=== PATIENT | male | born 1950 | race Hispanic/Latino ===

== ENCOUNTER 2017-04-10 10:11 | Inpatient (IN) | payer SELFPAY ==
[2017-04-10 10:55] LABS: #Basophils 0.1 thou/uL (0.0-0.2); #Eosinphils 0.5 thou/uL (0.0-0.7); #Lymphocytes 1.7 thou/uL (1.20-3.40); #Monocytes 0.7 thou/uL (0.11-0.59); #Neutrophils 4.6 thou/uL (1.40-6.50); %Basophils 0.8 % (0.0-1.0); %Eosinophils 6.9 % (0.0-10.0); %Lymphocytes 22.2 % (21.0-51.0); %Monocytes 8.7 % (0.0-10.0); Hematocrit 34.9 % (42.0-52.0); Mean Platelet Volume 8.4 fL (7.4-10.4); Red Blood Cell (RBC) Count 3.79 mill/uL (4.70-6.10); White Blood Cell (WBC) Count 7.5 thou/uL (4.8-10.8)
[2017-04-10 11:01] LABS: PTT 33.4 SEC (22.9-36.1); Prothrombin Time 13.8 SEC (12.0-14.7)
[2017-04-10 11:17] LABS: ALT (SGPT) 19 U/L (8-55); AST (SGOT) 16 U/L (5-34); Alkaline Phosphatase 54 U/L (40-150); Anion Gap 16 mmol/L (10-20); BUN (Urea Nitrogen) 40 mg/dL (8.4-25.7); Bilirubin, Total 0.8 mg/dL (0.2-1.2); Calc. Creatinine Clearance 0 mL/min (70-130); Calcium 9.5 mg/dL (7.8-10.44); Carbon Dioxide 24 mmol/L (23-31); Chloride 104 mmol/L (98-107); Estimated GFR-MDRD 13; Globulin 3.7 g/dL (2.4-3.5)
[2017-04-10 11:22] LABS: Troponin I 0.021 ng/mL (< 0.028)
--- NOTE | 2017-04-10 11:49 | CT ---
NONCONTRAST HEAD CT: Date: 04/10/17 COMPARISON: 05/29/15. HISTORY: Stroke symptoms x2 days. Difficulty swallowing and speaking. TECHNIQUE: Noncontrast head CT is performed from skull base to skull vertex. FINDINGS: No parenchymal hemorrhage. No extra-axial hematoma. No midline shift. Basilar cisterns are patent. A ge-appropriate atrophy. There is loss of walsh-white matter differentiation involving the left tempor al and occipital lobes, which are felt to be due to remote infarct. There appears to be associated m alacic change. There are chronic small vessel ischemic changes of the white matter. Hypodensities in the mid brain and veena are likely due to remote insult. However, given the patient' s symptomatology, additional evaluation with MRI may be beneficial. Remote lacunar infarct in the left thalamus is suspected. Adequate aeration of the sinuses and mastoid air cells. Atherosclerosis of the carotid arteries is n oted. Calvarium is intact. IMPRESSION: Probable remote lacunar infarcts in the left thalamus, mid brain/veena, as well as the left temporal/ occipital lobe. Given the patient's symptomatology, better interrogation with MRI is recommended. POS: JACKSON
[2017-04-10] MEDS ORDERED: Aspirin 325 MG TAB ONE (12:04)
[2017-04-10 15:31] VITALS: BMI 25.9
[2017-04-10] MEDS ORDERED: HYDROcodone/Acetaminophen 5/325 mg Tablet PO PRN (15:35)
[2017-04-10] MEDS ORDERED: HumaLOG 300 UNITS/3 ML VIAL SC PRN (15:35)
[2017-04-10] MEDS ORDERED: Ondansetron HCl/PF 4 MG/2 ML Vial IVP PRN (15:35)
[2017-04-10] MEDS ORDERED: Dextrose 5% in Water 1,000 ML IV PRN (15:35)
[2017-04-10] MEDS ORDERED: Enalaprilat Dihydrate 1.25 MG/ML VIAL SLOW IVP PRN (15:35)
[2017-04-10] MEDS ORDERED: Mag-Al 1200 mg/1200 mg/30 ML UDCUP PO PRN (15:35)
[2017-04-10] MEDS ORDERED: hydrALAZINE 20 MG/ML VIAL SLOW IVP PRN (15:35)
[2017-04-10] MEDS ORDERED: Acetaminophen 325 MG TAB PO PRN (15:35)
[2017-04-10] MEDS ORDERED: Dextrose 50% Abboject 50 ML SYRINGE SLOW IVP PRN (15:35)
[2017-04-10] MEDS ORDERED: Ondansetron ODT 4 MG TAB PO PRN (15:35)
--- NOTE | 2017-04-10 16:53 | HP ---
PRIMARY CARE PHYSICIAN: Merly Pelaez D.O. CHIEF COMPLAINT: Heaviness in the right arm and I could not walk. HISTORY OF PRESENT ILLNESS: Taken from the patient; however, he is somewhat of a poor historian and tends to wander off course with regards to the presence subject, but Mr. Encinas is a pleasant 66-ye ar-old gentleman that has a history of hypertension and diabetes mellitus. He was in his usual stat e of health until about 2-3 weeks ago when he says he was having trouble moving and felt like his fo ot was loose and he was losing his balance. Then, last night he was trying to talk to his and says that his voice was sounding funny, and his right foot and right arm felt heavy and numb, and he says that at times he would get stuck and could not move. He thought he might be having a light he art attack and so this is the reason he came to the ER. The patient denies any chest pain or shortn ess of breath, but he has felt chills off and on. When he was evaluated in the emergency room, he w as found to have a probable remote lacunar infarct in the left thalamus and midbrain and veena as wel l as the left temporal occipital lobe. He is being admitted for a subacute stroke. REVIEW OF SYSTEMS: With regards to the review of systems, CONSTITUTIONAL: The patient denies any fever, but he has had some subjective chills off and on. HEENT: No headaches. He has had some dizziness, which he attributes to visual changes. No sore th roat, rhinorrhea, neck pain, no adenopathy. PULMONARY: No hemoptysis, no cough, no wheezing. CARDIOVASCULAR: He denies chest pain or shortness of breath, no PND, no orthopnea. GASTROINTESTINAL: No abdominal pain, no nausea, no vomiting, no change in bowels. GENITOURINARY: No urinary frequency, hematuria, no hesitancy. NEUROLOGIC: No focal weakness, numbness, no seizures. PSYCHIATRIC: No symptoms of anxiety or depression. SKIN AND INTEGUMENT: No skin changes or rash. NEUROLOGIC: As per the history of present illness, not as what I previously mentioned. PAST MEDICAL HISTORY: Diabetes mellitus, hypertension, systolic heart failure with an ejection frac tion of 35-40% as well as chronic kidney disease. PAST SURGICAL HISTORY: History of scrotal surgery. FAMILY HISTORY: Significant for mother who had diabetes mellitus. ALLERGIES: No known drug allergies. SOCIAL HISTORY: He smokes about 1-2 cigarettes a day as well as he occasionally drinks approximatel y once a week. He is . CODE STATUS: FULL CODE. MEDICATIONS: Furosemide 20 mg daily, hydralazine 10 mg twice a daily, lisinopril 5 mg daily, simvas tatin 20 mg daily, and amlodipine 10 mg daily and this is from the patient's medication bottles at [facility]. PHYSICAL EXAMINATION: GENERAL: He is alert and oriented. He appears to be in no acute distress. VITAL SIGNS: Blood pressure was 178/88, heart rate is 88, respiratory rate of 19, and temperature i s 97.9. HEENT: His pupils are equal, round, and reactive. Extraocular muscles are intact. His sclerae are anicteric, and on the left pupil, the lens is slightly opacified. Throat: There is no erythema, n o exudates. NECK: I do not appreciate any bruits. LUNGS: Clear. No wheezing, no rales. CARDIOVASCULAR: Heart sounds are slightly distant, but he has a normal S1 and S2. I did not apprec iate an S3 or S4. No murmurs, clicks or rubs. ABDOMEN: Soft, nontender, and nondistended. There is no rebound or guarding. He did seem to have an abdominal wall hernia on the right extreme lateral upper quadrant. EXTREMITIES: There is no edema. He does have some chronic venous stasis changes. NEUROLOGICALLY: He did have a slight difference in his right and left upper extremity with the righ t side being slightly less strength than the left, but the strength was 5/5, the same is true for th e right and left lower extremities with the right lower extremity being slightly less than the left. His reflexes were symmetric; however, and 2+ throughout. He was able to dorsiflex both feet and plantar fell flat. He had some facial asymmetry with a right facial droop. SIGNIFICANT LABORATORY AND X-RAY FINDINGS: White blood cell count 7.5, hemoglobin 11.9, hematocrit is 34.9, and platelet count is 172. INR is 1.1. Sodium 140, potassium 4.0, chloride is 104, CO2 is 25, BUN of 40, creatinine 4.4. His blood s ugar was 148, troponin was 0.021, and he had a CT scan with the previously mentioned, probable lacun ar infarct in the left thalamus and mid brain as well as the veena and left temporal occipital lobe. ASSESSMENT AND PLAN: The patient will be admitted to the stroke floor for a subacute infarct. We w ill initiate a stroke workup including echocardiogram as well as bilateral carotid Dopplers and hugh tor him for atrial fibrillation on telemetry. We will also consult Neurology, start him on aspirin therapy as well. The patient has fairly significant chronic kidney disease. It looks as if his cre atinine is about at his baseline. We will likely need to consult Nephrology to help follow along wi th him here in the hospital. 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 Hopefully, once we find t his out, then we will have his Nephrology group to see him, he will also be seen by Neurology and mag galindo recommendations will be forthcoming.
--- NOTE | 2017-04-10 19:13 | CON ---
DATE OF CONSULTATION: 04/10/2017 REFERRING PHYSICIAN: Carlos Manuel Nelson M.D. REASON FOR CONSULTATION: Right-sided weakness. HISTORY OF PRESENT ILLNESS: Mr. Encinas is a pleasant 66-year-old male, who has been consulted for evaluation of right-sided weakness. The patient reports that approximately a month ago, he started noticing weakness in his right arm and right leg. He was having difficulty with walking and balance. He did not seek any medical attention as he thought that this will improve by him walking it off. He also started noticing weakness in his right side of the face as well as difficulty with talking and slurring of speech. He has noted difficulty with getting his words out at times. He denied any vision changes, headaches, lightheadedness, dizziness, numbness, or tingling. PAST MEDICAL HISTORY: Significant for diabetes, hypertension, systolic heart failure, and chronic kidney disease. PAST SURGICAL HISTORY: Significant for scrotal surgery. FAMILY HISTORY: Significant for diabetes. SOCIAL HISTORY: Smokes about 1-2 cigarettes on a daily basis. He drinks alcohol on occasions. He denies illicit drug use. He is . CURRENT MEDICATIONS: Please review MAR. ALLERGIES: No known drug allergies. REVIEW OF SYSTEMS: As mentioned in the HPI, otherwise negative. PHYSICAL EXAMINATION: VITAL SIGNS: Blood pressure 189/65, pulse of 76, temperature of 97.8, respirations of 16, O2 sats of 98% on room air. GENERAL: Well-developed, well-nourished male, in no apparent distress. RESPIRATORY: Clear to auscultation bilaterally. CARDIOVASCULAR: Regular rate and rhythm. NEUROLOGIC: Mental status: The patient is awake, alert, oriented x3. Speech and language: Mildly dysarthric speech noted. Cranial nerves: Pupils are 3 mm and reactive. Visual estrada are full intact. External muscles are intact. There is a right facial droop noted. Tongue and uvula are midline. Motor exam showed normal tone and bulk with 4/5 strength in the right upper extremity and 5 /5 strength in the right lower extremity as well as left upper and left lower extremity. He has a pronator drift on the right upper extremity. Sensory: Sensation is intact and symmetric. Deep tendon reflexes 2+ reflexes in both upper and lower extremities. Babinski plantar responses extensor on the right and flexion on the left. He does have a positive Ava's on the right. Coordination intact to [id number] ftapping bilaterally. LABORATORY DATA: Reviewed, which included CBC, coag panel, CMP, which is significant for hemoglobin 11.9, hematocrit of 34.9, BUN of 40, creatinine of 4.44, glucose of 152, otherwise unremarkable. IMAGING STUDIES: CT head without contrast was reviewed, which showed hypodensity involving the left thalamus midbrain veena as well as left temporal occipital region. IMPRESSION: 1. Subacute to chronic infarct involving the left temporal occipital region. 2. Hypertension. 3. Diabetes. 4. Right hemiparesis, due to #1. ASSESSMENT AND PLAN: Mr. Encinas is a pleasant 66-year-old male, who presented with 1-month history of weakness in his right side. His CAT scan does show subacute to chronic infarct involving the left temporal occipital region. This is the likely cause for his ongoing symptoms. At this time, I would recommend obtaining MRI brain without contrast as well as carotid Dopplers and echocardiogram. I would also recommend obtaining lipid profile. I agree with starting him on aspirin 325 mg daily for secondary stroke prevention as well as Lipitor 80 mg at bedtime for hyperlipidemia and secondary stroke prevention. I would recommend consulting PT, OT, and speech therapy. Continue supportive care. Continue current medical management. Thank you for consultation. MORENITA
[2017-04-10] MEDS: hydrALAZINE 10 MG TAB PO SCH (21:24)
[2017-04-10] MEDS: Atorvastatin Calcium 40 MG TAB PO SCH (21:25)
[2017-04-10] MEDS: Heparin 5,000 UNITS/ML VIAL SC SCH (21:25)
--- NOTE | 2017-04-10 21:49 | ULT ---
CAROTID ULTRASOUND: History: CVA. Comparison: None. Technique: Grayscale, color flow, doppler imaging with spectral analysis performed of the carotid ve rtebral arteries. FINDINGS: Right side: No significant atherosclerotic disease. Peak systolic velocity of the common carotid art ansley is 85.7 cm/sec. Peak systolic velocity internal carotid artery is 70.1 cm/sec. Systolic ICA/CCA ratio is 0.8. Left side: Minimal atherosclerotic disease. There are no elevated peak systolic or end diastolic ursula ocities to suggest hemodynamically significant stenosis. Peak systolic velocity of the common caroti d artery is 90.8 cm/sec. Peak systolic velocity of internal carotid artery is 94.3 cm/sec. Systolic ICA/CCA ratio is 1.04. Antegrade flow in bilateral vertebral arteries. IMPRESSION: No sonographic evidence of hemodynamically significant stenosis. POS: PPP
--- NOTE | 2017-04-11 05:37 | CON ---
DATE OF CONSULTATION: 04/10/2017 REASON FOR CONSULTATION: Stage V chronic kidney disease. HISTORY OF PRESENT ILLNESS: This is a 66-year-old gentleman with a history of diabetes mellitus and hypertension presented to the hospital with a creatinine of 4.4. Prior baseline was anywhere from 3.7-4.3. The patient was admitted today for a heaviness in the right arm and unable to walk, so for possible CVA. The patient at this time has no headache, numbness, tingling or weakness. Denies an y nausea, vomiting or chest pain. PAST MEDICAL HISTORY: Significant for diabetes mellitus, hypertension, congestive heart failure, CK D, scrotal surgery. FAMILY HISTORY: Negative for ESRD. ALLERGIES: Reviewed. SOCIAL HISTORY: Patient smokes. HOME MEDICATIONS: Reviewed. HOSPITAL MEDICATIONS: Reviewed. REVIEW OF SYSTEMS: Fifteen-point review of systems was performed and negative except positives note d above. GENERAL: Weakness- HEAD: Headache- NECK: No swelling or lumps. NOSE: No epistaxis or discharge. EYES: No diplopia or pain. RESPIRATORY: Dyspnea- CARDIOVASCULAR: Chest pain- GASTROINTESTINAL: Nausea- /ADULT NURSE PRACTITIONER: Hematuria- MUSCULOSKELETAL: No joint pain. NEUROPSYCHIATIC SYSTEMS: No suicidal ideation. No ideation. SKIN: Denies any rash or ulcer. CONSTITUTIONAL: No fever or chills. PHYSICAL EXAMINATION: GENERAL: Patient is awake, alert. VITAL SIGNS: Afebrile, pulse 75, breathing at 16, blood pressure 189/65. GENERAL APPEARANCE AND MENTAL STATUS: Fair. HEAD/NECK: Normocephalic. Atraumatic. EYES: EOMI. No deformity. EARS: Clear. No ulcers. NOSE: Intact. No lesions. MOUTH: Clear. No discharge. THROAT: Clear. No exudate. LUNGS: Clear. No crackles. CARDIAC: S1, S2. No rub. ABDOMEN: Benign. BS+. GENITALIA/RECTUM: Prasad absent. BACK/EXTREMITIES: Edema 0+ Ulcer- NEUROLOGICAL: Alert and motor intact. SKIN: Rash- Bruise- LYMPHATICS: Edema- Ulcer- LABORATORY: Show creatinine 4.4. ASSESSMENT AND RECOMMENDATIONS: 1. Stage V chronic kidney disease, would recommend holding lisinopril and increasing hydralazine. 2. Hypertension. Titrate medication. 3. Anemia, stable. 4. Medications based on glomerular filtration rate are appropriate. No indication for dialysis at this time. The patient will follow up with Dr. Lamb in the morning. The patient is seen by Dr. Lamb as an outpatient.
[2017-04-11 05:46] LABS: #Basophils 0.1 thou/uL (0.0-0.2); #Eosinphils 0.6 thou/uL (0.0-0.7); #Lymphocytes 2.7 thou/uL (1.20-3.40); #Monocytes 0.7 thou/uL (0.11-0.59); #Neutrophils 4.5 thou/uL (1.40-6.50); %Basophils 1.1 % (0.0-1.0); %Eosinophils 6.5 % (0.0-10.0); %Lymphocytes 31.8 % (21.0-51.0); %Monocytes 8.4 % (0.0-10.0); Hematocrit 35.5 % (42.0-52.0); Mean Platelet Volume 8.5 fL (7.4-10.4); Red Blood Cell (RBC) Count 3.89 mill/uL (4.70-6.10); White Blood Cell (WBC) Count 8.5 thou/uL (4.8-10.8)
[2017-04-11 06:07] LABS: Anion Gap 15 mmol/L (10-20); BUN (Urea Nitrogen) 42 mg/dL (8.4-25.7); Calc. Creatinine Clearance 18 mL/min (70-130); Calcium 9.3 mg/dL (7.8-10.44); Carbon Dioxide 22 mmol/L (23-31); Chloride 106 mmol/L (98-107); Cholesterol 148 mg/dl (< 200 Desired); Estimated GFR-MDRD 14; LDL Cholesterol, Calculated 73 mg/dL
[2017-04-11] MEDS: Aspirin 325 mg Enteric Coated Tablet PO SCH (08:13)
[2017-04-11] MEDS: hydrALAZINE 10 MG TAB PO SCH (08:13)
[2017-04-11] MEDS: Amlodipine 10 MG TAB PO SCH (08:16)
[2017-04-11] MEDS: Heparin 5,000 UNITS/ML VIAL SC SCH ×3 (08:22→20:13)
[2017-04-11] MEDS ORDERED: Lisinopril 5 MG TAB PO SCH (09:00)
[2017-04-11] MEDS ORDERED: hydrALAZINE 10 MG TAB PO SCH (09:13)
[2017-04-11] MEDS ORDERED: hydrALAZINE 25 MG TAB PO SCH (09:30)
--- NOTE | 2017-04-11 10:06 | MRI ---
MRI BRAIN WITHOUT IV CONTRAST: 04/11/2017 HISTORY: Difficulty swallowing and speaking. COMPARISON: CT head from 04/10/2017. FINDINGS: There is increased FLAIR and T2 weighted signal intensity in the veena bilaterally, like attributable to chronic small vessel ischemic changes. However, there is a linear area of restricted diffusion seen within the left aspect of the veena, consistent with an acute infarction. No additional acute i nfarction is seen. There are areas of increased FLAIR and T2 weighted signal intensity seen within the periventricular and subcortical white matter, likely attributable to moderate chronic small vessel ischemic changes. There is increased FLAIR and T2 weighted signal intensity with associated gliosis involving the le ft temporal and occipital lobe, likely related to a remote area of infarction. There are foci of increased FLAIR and T2 weighted signal intensity in the thalami bilaterally, most compatible with remote lacunar infarctions. The septum pellucidum and third ventricle are in the midline. There is cerebral and cerebellar volu me loss. The ventricular system is normal in size, shape, and position for the degree of sulcal atr ophy. the distal right vertebral artery is not visualized and may potentially terminate in PICA. There ar e otherwise appropriate flow voids demonstrated at the base of the brain. The orbits, paranasal sinuses, and skull base have a normal MRI appearance. IMPRESSION: 1. Acute lacunar infarction, left veena. 2. Chronic small vessel ischemic changes, including chronic small vessel ischemic changes in the po ns. 3. Remote bilateral lacunar infarctions in each thalamus. 4. Remote infarction in the posterior aspect of the left temporal lobe and involving the occipital lobe. 5. Cerebral and cerebellar volume loss. 6. Subcentimeter focus of increased T2 weighted signal intensity within the left parotid gland, pro bably related to an intraparotid lymph node. 7. Nonvisualization of the distal right vertebral artery flow void, and the right vertebral artery may potentially terminate in PICA. This is a normal variant. POS: SALO
[2017-04-11] MEDS ORDERED: cloNIDine 0.1 MG TAB PO PRN (12:23)
[2017-04-11] MEDS ORDERED: hydrALAZINE 20 MG/ML VIAL SLOW IVP PRN (12:23)
--- NOTE | 2017-04-11 12:27 | PDOC.PN ---
- Subjective Encounter Start Date: 04/11/17 Encounter Start Time: 12:26 Patient seen and examined. No new complaints. No overnight events. Still has Rt sided weakness/paresthesias. - Objective Resuscitation Status: Resuscitation Status FULL:Full Resuscitation MAR Reviewed: Yes Vital Signs & Weight: Vital Signs (12 hours) Temp Pulse Pulse Pulse Resp BP BP 04/11/17 11:43 97.5 F L 81 16 04/11/17 10:47 76 167/74 H 04/11/17 08:44 75 85 137/69 04/11/17 08:16 76 167/74 H 04/11/17 08:13 76 167/74 H 04/11/17 08:00 98.9 F 76 16 04/11/17 07:50 77 77 156/77 H 04/11/17 07:33 98.9 F 76 16 04/11/17 05:25 97.8 F 88 18 BP BP Pulse Ox 04/11/17 11:43 141/65 H 98 04/11/17 10:47 04/11/17 08:44 159/72 H 04/11/17 08:16 04/11/17 08:13 04/11/17 08:00 04/11/17 07:50 167/74 H 04/11/17 07:33 170/76 H 97 04/11/17 05:25 169/79 H 98 I&O: 04/10/17 04/11/17 04/12/17 06:59 06:59 06:59 Intake Total 920 240 Balance 920 240 Result Diagrams: 04/11/17 05:16 04/11/17 05:16 Additional Labs: Accuchecks 04/11/17 04/11/17 04/10/17 10:57 05:29 21:10 POC Glucose 150 H 128 H 154 H 04/10/17 16:47 POC Glucose 152 H Radiology Reviewed by me: Yes (MRI brain - Acute CVA) EKG Reviewed by me: Yes (Tele SR) Phys Exam - Physical Examination Constitutional: NAD Neck: no nodes, no JVD Respiratory: no wheezing, no rales, no rhonchi Symmetrical Cardiovascular: RRR, no rub 2/6 systolic murmur at M area, no heaves/pulsations Gastrointestinal: soft, non-tender, no distention, positive bowel sounds Musculoskeletal: no edema, pulses present Neurological: moves all 4 limbs Rt UE/LE - 4-5/5 strength Dx/Plan (1) Acute CVA (cerebrovascular accident) Code(s): I63.9 - CEREBRAL INFARCTION, UNSPECIFIED Status: Acute (2) Tobacco dependence Code(s): F17.200 - NICOTINE DEPENDENCE, UNSPECIFIED, UNCOMPLICATED Status: Chronic (3) Chronic systolic heart failure Code(s): I50.22 - CHRONIC SYSTOLIC (CONGESTIVE) HEART FAILURE Status: Chronic Comment: No ACEI/ARB/Aldactone due to CKD (4) Hypertension Code(s): I10 - ESSENTIAL (PRIMARY) HYPERTENSION Status: Chronic (5) CKD (chronic kidney disease) stage 4, GFR 15-29 ml/min Code(s): N18.4 - CHRONIC KIDNEY DISEASE, STAGE 4 (SEVERE) Status: Chronic (6) Anemia of renal disease Code(s): D63.1 - ANEMIA IN CHRONIC KIDNEY DISEASE Status: Chronic (7) DM2 (diabetes mellitus, type 2) Status: Chronic - Plan cont current plan of care, DVT proph w/heparin, DVT proph w/SCDs * On ASA - Patient has discontinued taking ASA 2-3 months ago * Counselled to quit smoking * Cont Statins * Hydralazine dose increased earlier today per Nephrology * DC ACEI - I confirmed with Nephrology * Add PRN BP meds Review of Systems - Review of Systems Respiratory: negative: Cough, Dry, Shortness of Breath, Hemoptysis, SOB with Excertion, Pleuritic Pain, Sputum, Wheezing Cardiovascular: negative: Chest Pain, Palpitations, Orthopnea, Paroxysmal Noc. Dyspnea, Edema, Light Headedness, Other Gastrointestinal: negative: Nausea, Vomiting, Abdominal Pain, Diarrhea, Constipation, Melena, Hematochezia, Other - Medications/Allergies Allergies/Adverse Reactions: Allergies Allergy/AdvReac Type Severity Reaction Status Date / Time No Known Allergies Allergy Verified 09/09/15 23:09 Medications: Current Medications Acetaminophen (Tylenol) 650 mg PO Q4H PRN PRN Reason: Headache/Fever or Pain Hydrocodone Bitart/Acetaminophen (Christine 5/325) 1 tab PO Q4H PRN PRN Reason: Moderate Pain (4-6) Al Hydroxide/Mg Hydroxide (Maalox) 30 ml PO Q6H PRN PRN Reason: Heartburn or Indigestion Amlodipine Besylate (Norvasc) 10 mg PO DAILY [facility] Last Admin: 04/11/17 08:16 Dose: 10 mg Aspirin (Ecotrin) 325 mg PO DAILY [facility] Last Admin: 04/11/17 08:13 Dose: 325 mg Atorvastatin Calcium (Lipitor) 80 mg PO HS [facility] Last Admin: 04/10/17 21:25 Dose: 80 mg Clonidine (Catapres) 0.1 mg PO Q4H PRN PRN Reason: Systolic BP > 180 Dextrose/Water (Dextrose 50%) 25 gm SLOW IVP PRN PRN PRN Reason: Hypoglycemia Glucagon (Glucagon) 1 mg IM PRN PRN PRN Reason: Hypoglycemia Heparin Sodium (Porcine) (Heparin) 5,000 units SC TID [facility] Last Admin: 04/11/17 08:22 Dose: Not Given Hydralazine HCl (Apresoline) 25 mg PO BID [facility] Hydralazine HCl (Apresoline) 10 mg SLOW IVP Q4H PRN PRN Reason: SBP Greater Than 180 Dextrose/Water (D5w) 1,000 mls @ 0 mls/hr IV .Q0M PRN; As Directed PRN Reason: Hypoglycemia Insulin Human Lispro (Humalog) 0 units SC .MODERATE SLIDING SC PRN PRN Reason: Moderate Correctional Scale Ondansetron HCl (Zofran Odt) 4 mg PO Q6H PRN PRN Reason: Nausea/Vomiting Ondansetron HCl (Zofran) 4 mg IVP Q6H PRN PRN Reason: Nausea/Vomiting Sodium Chloride (Flush - Normal Saline) 10 ml IVF Q12HR [facility] Sodium Chloride (Flush - Normal Saline) 10 ml IVF PRN PRN PRN Reason: Saline Flush
[2017-04-11] MEDS: hydrALAZINE 25 MG TAB PO SCH (20:11)
[2017-04-11] MEDS: Atorvastatin Calcium 40 MG TAB PO SCH (20:12)
--- NOTE | 2017-04-12 01:18 | PRG ---
DATE OF SERVICE: 04/11/2017 SUBJECTIVE: Patient was seen and examined at bedside and overnight events noted. Patient denies an y shortness of breath or chest pain or palpitation. No history of nausea or vomiting or diarrhea or fever or chills or cramps. OBJECTIVE: GENERAL: This is a well built male in no apparent distress VITAL SIGNS: Temperature 98.5, pulse 92, respirations , blood pressure 147/72. HEENT: Atraumatic, normocephalic. Oral mucosa is moist. NECK: Supple. CARDIOVASCULAR: S1, S2 heard. Rate and rhythm regular. RESPIRATORY: Clear to auscultation. GASTROINTESTINAL: Abdomen is soft. MUSCULOSKELETAL: No tenderness. No edema. DERMATOLOGIC: No skin rash. NEUROLOGIC: Alert and awake and oriented X3, no focal neurologic deficits. Moving all the extremit ies. PSYCHIATRIC: Mood and affect normal. LABORATORY DATA: Potassium is 3.9, BUN is 42, creatinine is 4.2. ASSESSMENT AND PLAN: 1. Acute kidney injury on chronic kidney disease stage 5. Renal function is stable, close to his b aseline. Agree with holding lisinopril. 2. Hypertension. We will up titrate hydralazine as tolerated . 3. Anemia, mild. 4. Renal function seems to be stable and close to his baseline. Plan is to hold JOSÉ MIGUEL inhibitors at this point given the advanced GFR and we will follow blood pressur e closely. Blood pressure seems to be getting controlled now.
[2017-04-12] MEDS: Amlodipine 10 MG TAB PO SCH (07:59)
[2017-04-12] MEDS: Aspirin 325 mg Enteric Coated Tablet PO SCH (07:59)
[2017-04-12] MEDS: hydrALAZINE 25 MG TAB PO SCH ×2 (07:59→21:37)
[2017-04-12] MEDS: Heparin 5,000 UNITS/ML VIAL SC SCH ×3 (08:05→21:38)
--- NOTE | 2017-04-12 09:19 | PDOC.PN ---
- Subjective Encounter Start Date: 04/12/17 Encounter Start Time: 09:17 Mr. Encinas is disappointed about the weakness in his lright arm and leg. He had expected it to improve by now. - Objective Resuscitation Status: Resuscitation Status FULL:Full Resuscitation MAR Reviewed: Yes Vital Signs & Weight: Vital Signs (12 hours) Temp Pulse Resp BP Pulse Ox 04/12/17 07:59 79 04/12/17 07:25 98.0 F 79 18 117/70 98 04/12/17 03:35 97.7 F 73 12 109/53 L 98 04/11/17 23:56 97.7 F 74 18 121/62 94 L Weight Admit Weight 156 lb Weight 155 lb 6.4 oz I&O: 04/11/17 04/12/17 04/13/17 06:59 06:59 06:59 Intake Total 920 1360 Balance 920 1360 Result Diagrams: 04/11/17 05:16 04/11/17 05:16 Additional Labs: Accuchecks 04/12/17 04/11/17 04/11/17 06:19 17:22 10:57 POC Glucose 152 H 130 H 150 H Phys Exam - Physical Examination HEENT: PERRLA Respiratory: no wheezing, no rales, no rhonchi, clear to auscultation bilateral Cardiovascular: RRR, no significant murmur Gastrointestinal: soft, non-tender, positive bowel sounds Musculoskeletal: no edema + right upper and lower extremity weakness Dx/Plan (1) CKD stage 5 secondary to hypertension Code(s): I12.0 - HYP CHR KIDNEY DISEASE W STAGE 5 CHR KIDNEY DISEASE OR ESRD; N18.5 - CHRONIC KIDNEY DISEASE, STAGE 5 Status: Acute (2) Acute CVA (cerebrovascular accident) Code(s): I63.9 - CEREBRAL INFARCTION, UNSPECIFIED Status: Acute (3) DM2 (diabetes mellitus, type 2) Status: Chronic (4) Hypertension Code(s): I10 - ESSENTIAL (PRIMARY) HYPERTENSION Status: Chronic (5) Tobacco dependence Code(s): F17.200 - NICOTINE DEPENDENCE, UNSPECIFIED, UNCOMPLICATED Status: Chronic - Plan * Acute Left pontine CVA- continue aspirin therapy * Will continue Lipitor while in the hospital, and can change to Simvastatin at a higher dose at discharge ( patient is uninsured) * HTN- blood pressure has improved. He is now off Lisinopril due to advanced kidney disease * Hydralazine has been increased, and will continue Amlodipine * Discussed stopping ALL tobacco products including chewing tobacco * Continue PT/OT * Plan is for discharge tomorrow ( daughter is unable to pick him up today).
--- NOTE | 2017-04-12 11:33 | PRG ---
DATE OF SERVICE: 04/12/2017 SUBJECTIVE: Patient was seen and examined at bedside and overnight events noted. Patient denies an y shortness of breath or chest pain or palpitation. No history of nausea or vomiting or diarrhea or fever or chills or cramps. OBJECTIVE: GENERAL: This is a well-built male in no apparent distress. VITAL SIGNS: Temperature 98.0, pulse 79, respiratory rate 18, blood pressure 117/70. HEENT: Atraumatic, normocephalic. Oral mucosa is moist. NECK: Supple. CARDIOVASCULAR: S1 and S2 heard, rate and rhythm regular. RESPIRATORY: Clear to auscultation. GASTROINTESTINAL: Abdomen is soft. MUSCULOSKELETAL: No tenderness, no edema. DERMATOLOGIC: No skin rash. NEUROLOGIC: Alert and awake and oriented X3. No focal neurologic deficits. Moving all the extremi ties. PSYCHIATRIC: Mood and affect normal. LABORATORY DATA: Not done. ASSESSMENT AND PLAN: 1. Acute kidney injury on chronic kidney disease stage 5. Renal function is stable. No acute ind ication for dialysis. We will continue close monitor. 2. Hypertension, better. Continue to avoid JOSÉ MIGUEL inhibitors. 3. Anemia mild. 4. Edema, controlled . 5. Overall, blood pressure is stable. Renal function is stable. No acute indication for dialysis. We will continue close monitoring.
[2017-04-12] MEDS: Atorvastatin Calcium 40 MG TAB PO SCH (21:44)
--- NOTE | 2017-04-13 08:46 | PDOC.PN ---
- Subjective Encounter Start Date: 04/13/17 Encounter Start Time: 08:45 Subjective: Ambulating with rolling walker in hallway with PT. To go home with -: step daughter and girlfriend. Waiting on age 67 for Medicare. - Objective Resuscitation Status: Resuscitation Status FULL:Full Resuscitation MAR Reviewed: Yes Vital Signs & Weight: Vital Signs (12 hours) Temp Pulse Resp BP BP Pulse Ox 04/13/17 07:55 97.9 F 71 18 04/13/17 07:15 97.9 F 71 18 134/65 97 04/13/17 04:30 98.2 F 93 16 120/74 98 04/13/17 00:00 98.3 F 76 16 123/66 98 04/12/17 21:37 72 147/71 H Weight Admit Weight 156 lb Weight 155 lb 6.4 oz I&O: 04/12/17 04/13/17 04/14/17 06:59 06:59 06:59 Intake Total 1360 360 Balance 1360 360 Result Diagrams: 04/11/17 05:16 04/11/17 05:16 Additional Labs: Accuchecks 04/13/17 04/12/17 04/12/17 06:31 21:35 17:16 POC Glucose 124 H 132 H 156 H 04/12/17 10:47 POC Glucose 132 H Phys Exam - Physical Examination Constitutional: NAD HEENT: moist MMs Respiratory: no rales, no rhonchi occ wheezes Cardiovascular: RRR, no significant murmur Gastrointestinal: soft, non-tender Musculoskeletal: no edema, pulses present decreased strength in RU and LE, right facial droop Psychiatric: normal affect, A&O x 3 Dx/Plan (1) Acute CVA (cerebrovascular accident) Code(s): I63.9 - CEREBRAL INFARCTION, UNSPECIFIED Status: Acute (2) CKD stage 5 secondary to hypertension Code(s): I12.0 - HYP CHR KIDNEY DISEASE W STAGE 5 CHR KIDNEY DISEASE OR ESRD; N18.5 - CHRONIC KIDNEY DISEASE, STAGE 5 Status: Acute (3) DM2 (diabetes mellitus, type 2) Status: Chronic (4) Hypertension Code(s): I10 - ESSENTIAL (PRIMARY) HYPERTENSION Status: Chronic (5) Tobacco dependence Code(s): F17.200 - NICOTINE DEPENDENCE, UNSPECIFIED, UNCOMPLICATED Status: Chronic Comment: Patient to stop all smoking and smokeless tobacco. - Plan cont current plan of care, PT/OT D/c home today with family. * . - Discharge Day Encounter end time: 10:00
[2017-04-13] MEDS: hydrALAZINE 25 MG TAB PO SCH (09:39)
[2017-04-13] MEDS: Aspirin 325 mg Enteric Coated Tablet PO SCH (09:39)
[2017-04-13] MEDS: Amlodipine 10 MG TAB PO SCH (09:39)
[2017-04-13] MEDS: Heparin 5,000 UNITS/ML VIAL SC SCH (09:40)
[2017-04-13 11:34] VITALS: TEMP 98.5
[2017-04-13 11:54] VITALS: BP 143/72
--- NOTE | 2017-04-13 13:24 | DIS ---
PRIMARY CARE PHYSICIAN: Merly Pelaez D.O. ADMISSION DIAGNOSES: 1. Subacute stroke. 2. Diabetes mellitus type 2, diet controlled. 3. Hypertension. 4. Chronic systolic congestive heart failure. 5. Chronic kidney disease. DISCHARGE DIAGNOSES: 1. Acute/subacute cerebrovascular accident. 2. Chronic kidney disease, stage 5, secondary to hypertension. 3. Hypertension. 4. Diabetes mellitus, type 2, diet controlled. 5. Tobacco dependence. 6. Systolic congestive heart failure, stable. CONSULTATIONS: 1. Nephrology, Dr. Lion. 2. Neurology, Dr. Aviva Chaudhry. PROCEDURES: 1. CT of the brain showing probable remote lacunar infarction of left thalamus, mid brain stem and veena as well as the left temporal-occipital lobe. 2. Carotid Doppler study showing no evidence for significant stenosis. 3. MRI showing an acute lacunar infarct in the left veena along with multiple remote infarcts. 4. Transthoracic echocardiogram showing an ejection fraction of 60%-65% and some suggestion of parr tolic dysfunction. PERTINENT LABORATORY DATA: Hemoglobin stable at 11.8. Coagulation profile normal. Blood sugars wi thin normal range throughout hospitalization, creatinine 4.44 at admission, down to 4.22 at discharg e. Cholesterol profile only notable for a triglyceride of 174. The remainder is within normal limi ts. SUMMARY OF HOSPITAL COURSE: This is a 66-year-old male, who came in with a past medical hi story for diabetes, hypertension, systolic congestive heart failure, though he does not appear to perez ve any systolic dysfunction at this point and his diabetes is controlled without medications. He ca me in with right-sided weakness, some has started about a month ago, and he had some increased sever ity symptoms right before he came in along with slurring of his speech. He was evaluated in the [facility]. CT and MRI results as above. The patient had physical therapy and speech therapy evaluation s. He was doing well the day of discharge and ambulating with a walker in the hallway and eating we ll. He will be discharged home to the care of his family, his stepdaughter, and his girlfriend, who lives with him, who will help care for him. DISCHARGE MANAGEMENT: Discharged home. Follow up with Dr. Pelaez next week. ACTIVITIES: As tolerated. Ambulate with a rolling walker with assistance only at first until he ge ts more steady on his feet. DIET: Healthy heart, diabetic diet with low sodium and low potassium. DISCHARGE MEDICATIONS: 1. Amlodipine 10 mg daily. 2. Hydralazine 25 mg twice a day, 60 tablets dispensed. 3. Atorvastatin 80 mg daily, 30 tablets dispensed. 4. Aspirin 325 mg daily, 30 tablets dispensed. He is to stop his lisinopril due to his worsened renal failure. The patient is also to follow up [facility] Nephrology as an outpatient.
--- NOTE | 2017-04-13 16:09 | PRG ---
DATE OF SERVICE: 04/13/2017 SUBJECTIVE: Patient was seen and examined at bedside and overnight events noted. Patient denies an y shortness of breath or chest pain or palpitation. No history of nausea or vomiting or diarrhea or fever or chills or cramps. OBJECTIVE: GENERAL: This is a well-built male in no apparent distress. VITAL SIGNS: Temperature 98.5, pulse 73, respiratory rate 18, blood pressure 113/68. HEENT: Atraumatic, normocephalic. Oral mucosa is moist. NECK: Supple. CARDIOVASCULAR: S1 and S2 heard, rate and rhythm regular. RESPIRATORY: Clear to auscultation. GASTROINTESTINAL: Abdomen is soft. MUSCULOSKELETAL: No tenderness, no edema. DERMATOLOGIC: No skin rash. NEUROLOGIC: Alert and awake and oriented X3. No focal neurologic deficits. Moving all the extremi ties. PSYCHIATRIC: Mood and affect normal. LABORATORY DATA: Not done today. ASSESSMENT AND PLAN: 1. Acute kidney injury on chronic kidney disease. Renal function is stable. Continue with dialysi s. We will continue outpatient followup. 2. Hypertension. 3. Anemia. 4. Edema controlled. 5. Okay to discharge home. Follow up with clinic in 1 week.
--- NOTE | 2017-06-11 11:33 | EKG ---
Test Reason : Blood Pressure : / mmHG Vent. Rate : 081 BPM Atrial Rate : 081 BPM P-R Int : 162 ms QRS Dur : 080 ms QT Int : 394 ms P-R-T Axes : 035 -02 079 degrees QTc Int : 457 ms Normal sinus rhythm Inferior infarct , age undetermined No STEMI Abnormal ECG Confirmed by LAWRENCE OBANDO M.D. ([id number]), fashion editor IRENA JARA ([id number]) on 06/11/2017 11:32:59 AM Referred By: Confirmed By:LAWRENCE OBANDO M.D.
== END 2017-04-13 14:12 | disposition home health service (06) | DRG 65 ==
LOC: ERS 10:11 → 2SE 15:07
PROVIDERS: ADMIT Internal Medicine; ATTEND Internal Medicine
DX: I63.9 Cerebral infarction, unspecified (principal); G81.91 Hemiplegia, unspecified affecting right dominant side; I13.2 Hypertensive heart and chronic kidney disease with heart failure and with stage 5 chronic kidney disease, or end stage renal disease; N17.9 Acute kidney failure, unspecified; F17.210 Nicotine dependence, cigarettes, uncomplicated; D63.1 Anemia in chronic kidney disease; E11.9 Type 2 diabetes mellitus without complications; N18.5 Chronic kidney disease, stage 5; I50.22 Chronic systolic (congestive) heart failure; R29.810 Facial weakness; R47.81 Slurred speech; Z86.73 Personal history of transient ischemic attack (TIA), and cerebral infarction without residual deficits; I87.8 Other specified disorders of veins; R29.708 NIHSS score 8
CPT/HCPCS: 36415; 36416; 70450; 70551; 80048; 80053; 80061; 82553; 84484; 85025; 85610; 85730; 93005; 93306; 93880; A4216; G8978-GP-CJ; G8979-GP-CI; G8987-GO-CJ; G8988-GO-CI; G9162-GN-CK; G9163-GN-CI; J1644